=== PATIENT | male | born 1990 | race Caucasian/White ===

== ENCOUNTER 2021-05-29 03:18 | Emergency (ER) | payer OTHER ==
[~2021-05-29] VITALS: Ht 167.6 cm; Wt 83.9 kg
[~2021-05-29 03:18] MED LIST: CEPH250A PO; HYDACE5 PO
== END 2021-05-29 04:05 | disposition home or self-care (01) ==
LOC: ER 03:18
DX: R07.89 Other chest pain (principal); F17.290 Nicotine dependence, other tobacco product, uncomplicated
CPT/HCPCS: 36415; 93005; 93010